=== PATIENT | female | born 1970 | race Caucasian/White ===

== ENCOUNTER → 2017-12-08 | Outpatient (CLI) | payer OTHER ==
[~2017-12-08] MED LIST: CITA40TA5 PO
== END ==
LOC: STAR 10:17
PROVIDERS: ATTEND Surgery
DX: Z02.9 Encounter for administrative examinations, unspecified (principal)

== ENCOUNTER → 2018-01-27 | Outpatient (CLI) | payer OTHER | END | disposition home or self-care (01) | LOC: ROC 07:19 | PROVIDERS: ATTEND Radiology Radiation Oncology | DX: C50.411 Malignant neoplasm of upper-outer quadrant of right female breast (principal); Z17.0 Estrogen receptor positive status [ER+] | CPT/HCPCS: 99212; G0463 ==

== ENCOUNTER → 2018-02-01 | Outpatient (CLI) | payer OTHER ==
[~2018-02-01] MED LIST changes: +OMNIPAQUE 350 MG/ML, 100ML BOTTLE ONE
== END | disposition home or self-care (01) ==
LOC: RAD 08:36
PROVIDERS: ATTEND Internal Medicine Hematology & Oncology
DX: D25.9 Leiomyoma of uterus, unspecified (principal); N85.2 Hypertrophy of uterus; R23.4 Changes in skin texture; K76.0 Fatty (change of) liver, not elsewhere classified; C50.411 Malignant neoplasm of upper-outer quadrant of right female breast
CPT/HCPCS: 71260; 74177; 78306; A9503; Q9967

== ENCOUNTER → 2018-06-05 | Outpatient (CLI) | payer OTHER ==
[~2018-06-05] MED LIST changes: -OMNIPAQUE 350 MG/ML, 100ML BOTTLE ONE
== END | disposition home or self-care (01) ==
LOC: ROC 08:13
PROVIDERS: ATTEND Radiology Radiation Oncology
DX: C50.411 Malignant neoplasm of upper-outer quadrant of right female breast (principal)
CPT/HCPCS: 99213; G0463

== ENCOUNTER → 2018-08-17 | Outpatient (CLI) | payer OTHER | END | disposition home or self-care (01) | LOC: EDSTATUS 08-05 15:29 → ROC 08-16 15:30 | PROVIDERS: ATTEND Radiology Radiation Oncology | DX: Z08 Encounter for follow-up examination after completed treatment for malignant neoplasm (principal); C50.411 Malignant neoplasm of upper-outer quadrant of right female breast | CPT/HCPCS: 99212; G0463 ==

== ENCOUNTER → 2018-10-23 | Outpatient (CLI) | payer OTHER | END | disposition home or self-care (01) | LOC: ROC 08:08 → EDSTATUS 13:34 | PROVIDERS: ATTEND Radiology Radiation Oncology | DX: C50.411 Malignant neoplasm of upper-outer quadrant of right female breast (principal); Z92.3 Personal history of irradiation | CPT/HCPCS: 99212; G0463 ==

== ENCOUNTER 2019-01-18 08:19 | Outpatient (CLI) | payer OTHER | END 2019-01-18 23:59 | disposition home or self-care (01) | LOC: ROC 08:19 | PROVIDERS: ATTEND Radiology Radiation Oncology | DX: C50.911 Malignant neoplasm of unspecified site of right female breast (principal) | CPT/HCPCS: 99213; G0463 ==

== ENCOUNTER 2019-07-20 06:56 | Outpatient (CLI) | payer OTHER | END 2019-07-20 23:59 | disposition home or self-care (01) | LOC: ROC 06:56 | PROVIDERS: ATTEND Radiology Radiation Oncology | DX: C50.411 Malignant neoplasm of upper-outer quadrant of right female breast (principal) | CPT/HCPCS: 99213; G0463 ==

== ENCOUNTER → 2020-02-07 | Outpatient (CLI) | payer OTHER | END | disposition home or self-care (01) | LOC: ROC 07:23 | PROVIDERS: ATTEND Radiology Radiation Oncology | DX: C50.411 Malignant neoplasm of upper-outer quadrant of right female breast (principal) | CPT/HCPCS: 99212; G0463 ==

== ENCOUNTER 2021-01-30 13:12 | Inpatient (IN) | payer BC ==
[~2021-01-30] VITALS: Ht 167.6 cm; Wt 144.4 kg
[2021-01-30] MEDS ORDERED: ALBUTEROL/IPRATROPIUM 2.5MG/0.5MG, 3 ML ONE ×2 (13:40→18:38)
--- NOTE | 2021-01-30 13:42 | NUR ---
RT CONTACTED ON INITIAL PT ASESSMENT FOR TX.
[2021-01-30] MEDS ORDERED: ALBUTEROL/IPRATROPIUM 2.5MG/0.5MG, 3 ML NEB ONE (14:00)
[2021-01-30] MEDS ORDERED: methylPREDNISolone SOD SUCC 125 MG/2 ML ONE (14:08)
[2021-01-30 14:22] LABS: BASOPHILS % (AUTO) 0 % (0-1); EOSINOPHILS % (AUTO) 0 % (1-7); LYMPHOCYTES % (AUTO) 9 % (22-44); MEAN CORPUSCULAR HEMOGLOBIN 32.4 pg (27.0-34.8); MEAN CORPUSCULAR HGB CONC 34.1 g/dL (32.4-35.8); MEAN PLATELET VOLUME 10.3 fL (7.4-10.4); MONOCYTES % (AUTO) 2 % (2-9); NEUTROPHILS % (AUTO) 88 % (42-75); PLATELET COUNT 149 x10^3/uL (130-400); RED BLOOD COUNT 4.89 x10^6/uL (3.82-5.3); RED CELL DISTRIBUTION WIDTH 12.9 % (9.6-15.2)
[2021-01-30 14:33] LABS: ALANINE AMINOTRANSFERASE 42 U/L (12-78); ANION GAP 10 mmol/L (5-15); CALCIUM 9.5 mg/dL (8.5-10.1); CHLORIDE 107 mmol/L (98-107); CREATININE 0.88 mg/dL (0.55-1.02)
[2021-01-30 14:37] LABS: ALKALINE PHOSPHATASE 71 U/L (45-117); BILIRUBIN,TOTAL 0.7 mg/dL (0.2-1.0); TOTAL PROTEIN 7.9 g/dL (6.4-8.2); TROPONIN I < 0.015 ng/mL (0.000-0.045)
[2021-01-30] MEDS ORDERED: SODIUM CHLORIDE FLUSH 10ML SYR IVF ONE (15:00)
[2021-01-30] MEDS ORDERED: methylPREDNISolone SOD SUCC 125 MG/2 ML IV ONE (15:00)
[2021-01-30] MEDS ORDERED: OMNIPAQUE 350 MG/ML, 100ML BOTTLE ONE (16:30)
--- NOTE | 2021-01-30 18:14 | NUR ---
task rn, pt helped to [facility].
[2021-01-30] MEDS ORDERED: SODIUM CHLORIDE FLUSH 10ML SYR IVF PRN (18:30)
[2021-01-30] MEDS ORDERED: ALBUTEROL/IPRATROPIUM 2.5MG/0.5MG, 3 ML NPPB SCH (19:00)
--- NOTE | 2021-01-30 20:16 | NUR ---
admitting physician okayed for patient to eat food
[2021-01-30] MEDS ORDERED: ONDANSETRON 2MG/ML, 2ML IVPush PRN (21:00)
[2021-01-30] MEDS ORDERED: ACETAMINOPHEN 325 MG TABLET PO PRN (21:00)
--- NOTE | 2021-01-30 21:31 | NUR ---
attempted report at this time to Aneta RAMIREZ. Unable to take at this time. [employer]-top executive to call back shortly for report
[2021-01-30] MEDS: ENOXAPARIN 30 MG/0.3 ML SQ SCH (22:17)
[2021-01-30] MEDS: BENZONATATE 100 MG CAPSULE PO SCH (22:17)
[2021-01-30 22:51] VITALS: BP 165/96
[2021-01-30] MEDS: TRAZODONE 50MG TABLET PO PRN (23:10)
[2021-01-31] MEDS: ALBUTEROL-IPRATROPIUM MDI INH INH SCH ×6 (00:47→21:30)
[2021-01-31 00:49] VITALS: BP 179/125
[2021-01-31] MEDS: ENALAPRILAT 1.25 MG/ML, 2ML IVPush PRN ×2 (00:56→01:33)
[2021-01-31 01:29] VITALS: BP 178/118
[2021-01-31 04:05] VITALS: BP 151/95
[2021-01-31] MEDS ORDERED: hydrALAzine 20 MG/ML, 1ML IV PRN (09:00)
[2021-01-31 09:21] VITALS: BP 151/98
[2021-01-31] MEDS: BENZONATATE 100 MG CAPSULE PO SCH ×3 (09:52→21:29)
[2021-01-31] MEDS: ENOXAPARIN 30 MG/0.3 ML SQ SCH ×2 (09:53→21:29)
[2021-01-31] MEDS: LOSARTAN 25MG TABLET PO SCH (09:53)
[2021-01-31 13:31] VITALS: BP 143/95
[2021-01-31] MEDS ORDERED: AZITHROMYCIN 500 MG in SODIUM CHLORIDE 0.9% 250 ML IV SCH (14:00)
[2021-01-31] MEDS: AZITHROMYCIN 500 MG TABLET PO SCH (14:24)
[2021-01-31 19:37] VITALS: BP 158/83
[2021-01-31] MEDS: TRAZODONE 50MG TABLET PO PRN (21:36)
[2021-02-01 00:31] VITALS: BP 158/101
[2021-02-01] MEDS: ENALAPRILAT 1.25 MG/ML, 2ML IVPush PRN (00:42)
[2021-02-01] MEDS: ALBUTEROL-IPRATROPIUM MDI INH INH SCH ×7 (01:52→23:18)
[2021-02-01 06:10] LABS: BASOPHILS % (AUTO) 1 % (0-1); EOSINOPHILS % (AUTO) 0 % (1-7); LYMPHOCYTES % (AUTO) 21 % (22-44); MEAN CORPUSCULAR HEMOGLOBIN 32.4 pg (27.0-34.8); MEAN CORPUSCULAR HGB CONC 33.6 g/dL (32.4-35.8); MEAN PLATELET VOLUME 9.7 fL (7.4-10.4); MONOCYTES % (AUTO) 7 % (2-9); NEUTROPHILS % (AUTO) 71 % (42-75); PLATELET COUNT 119 x10^3/uL (130-400); RED BLOOD COUNT 4.32 x10^6/uL (3.82-5.3); RED CELL DISTRIBUTION WIDTH 13.2 % (9.6-15.2)
[2021-02-01 06:18] LABS: CALCIUM 8.6 mg/dL (8.5-10.1); CHLORIDE 106 mmol/L (98-107); CREATININE 0.69 mg/dL (0.55-1.02)
[2021-02-01 06:40] LABS: ANION GAP 5 mmol/L (5-15)
[2021-02-01 06:57] VITALS: BP 155/89
[2021-02-01] MEDS: ENOXAPARIN 30 MG/0.3 ML SQ SCH ×2 (08:42→19:55)
[2021-02-01] MEDS: BENZONATATE 100 MG CAPSULE PO SCH ×3 (08:42→19:55)
[2021-02-01] MEDS: LOSARTAN 25MG TABLET PO SCH (08:42)
[2021-02-01] MEDS: AZITHROMYCIN 500 MG TABLET PO SCH (08:42)
[2021-02-01 13:11] VITALS: BP 146/80
[2021-02-01 19:18] VITALS: BP 153/88
[2021-02-02 00:10] VITALS: BP 139/80
[2021-02-02] MEDS: ALBUTEROL-IPRATROPIUM MDI INH INH SCH ×4 (03:06→14:44)
[2021-02-02 06:03] LABS: ANION GAP 4 mmol/L (5-15); CALCIUM 8.3 mg/dL (8.5-10.1); CHLORIDE 105 mmol/L (98-107)
[2021-02-02 06:31] VITALS: BP 158/91
[2021-02-02] MEDS: BENZONATATE 100 MG CAPSULE PO SCH ×2 (08:30→15:36)
[2021-02-02] MEDS: AZITHROMYCIN 500 MG TABLET PO SCH (08:30)
[2021-02-02] MEDS: LOSARTAN 25MG TABLET PO SCH (08:30)
[2021-02-02] MEDS: ENOXAPARIN 30 MG/0.3 ML SQ SCH (08:30)
[2021-02-02] MEDS ORDERED: CITALOPRAM 20 MG TABLET PO SCH (09:00)
[2021-02-02] MEDS ORDERED: AZIT500T10 PO (12:13)
[2021-02-02] MEDS ORDERED: BENZ-17 PO (12:13)
[2021-02-02] MEDS ORDERED: PRED5TAB PO (12:13)
[2021-02-02] MEDS ORDERED: IPRA4AER INH (12:13)
[2021-02-02] MEDS ORDERED: LOSA50TA14 PO (12:13)
[2021-02-02 12:14] VITALS: BP 144/85
== END 2021-02-02 17:53 | disposition home or self-care (01) | DRG 871 ==
LOC: ED 14:37 → EDIP 18:30 → 3N 22:00
PROVIDERS: ADMIT Family Medicine; ATTEND Internal Medicine
DX: A41.9 Sepsis, unspecified organism (principal); J96.01 Acute respiratory failure with hypoxia; J44.1 Chronic obstructive pulmonary disease with (acute) exacerbation; Z68.43 Body mass index [BMI] 50.0-59.9, adult; Z20.822 Contact with and (suspected) exposure to COVID-19; I10 Essential (primary) hypertension; R73.9 Hyperglycemia, unspecified; F17.200 Nicotine dependence, unspecified, uncomplicated; E66.9 Obesity, unspecified; J40 Bronchitis, not specified as acute or chronic
CPT/HCPCS: 36415; 71045; 71275; 80048; 80053; 83036; 83605; 83735; 83880; 84100; 84145; 84484; 85025; 85379; 87040; 93005; 94640; 96374; 99291; G0378; J1650; Q9967; U0005; J2930; J7512; U0003